=== PATIENT | female | born 1960 | race Caucasian/White ===

== ENCOUNTER 2023-12-22 20:21 | Emergency (ER) | payer OTHER, BC ==
[2023-12-22 20:43] VITALS: TEMP 97.8
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
[2023-12-22] MEDS: HYDROmorphone 1 MG/ML 1 ML SYRINGE IM STA (20:55)
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
[2023-12-23 00:07] VITALS: BP 146/62; PULSE 60; RESP 18
== END 2023-12-22 23:36 | disposition home or self-care (01) ==
LOC: EC 20:21
DX: S13.9XXA Sprain of joints and ligaments of unspecified parts of neck, initial encounter (principal); Z87.891 Personal history of nicotine dependence; Z88.0 Allergy status to penicillin; V43.62XA Car passenger injured in collision with other type car in traffic accident, initial encounter; Y92.410 Unspecified street and highway as the place of occurrence of the external cause
CPT/HCPCS: 72170; 71045; 72125; 70450; 99285; 96372; J1170